=== PATIENT | male | born 2000 | race Caucasian/White ===

== ENCOUNTER 2019-07-26 20:34 | Emergency (ER) | payer OTHER ==
[~2019-07-26] VITALS: Ht 175.3 cm; Wt 97.5 kg
[2019-07-26] MEDS ORDERED: NORFLEX100MG PO (20:58)
[2019-07-26] MEDS ORDERED: DOLOGESIC-DF 51 EACH (20:58)
== END 2019-07-26 22:51 | disposition home or self-care (01) ==
LOC: ER 20:34
DX: S62.002A Unspecified fracture of navicular [scaphoid] bone of left wrist, initial encounter for closed fracture (principal); W17.89XA Other fall from one level to another, initial encounter; Y93.89 Activity, other specified; Y92.018 Other place in single-family (private) house as the place of occurrence of the external cause; Y99.8 Other external cause status; M25.532 Pain in left wrist